=== PATIENT | male | born 1945 | race Caucasian/White ===

== ENCOUNTER → 2016-05-24 | Outpatient (CLI) | payer OTHER ==
[~2016-05-24] MED LIST: AMLO-110 PO; ASPEC81 PO; ATOR-26 PO; B-COTAB18 PO; CARV6.252 PO; CHOL100010 PO; COEN150C PO; FRS/40 PO; INSDGI SC; LISI40TA PO; NITR0.4S UT; NVLGI SQ; POTA-327 PO
[2016-05-24 12:29] LABS: ESTIMATED AVERAGE GLUCOSE 140 mg/dl; HA1C FLAG Normal (Normal)
[2016-05-24 12:46] LABS: BLOOD UREA NITROGEN 21 mg/dl (7-18); BUN/CREATININE RATIO 22.7 (10-20); CALCIUM 8.8 mg/dl (8.5-10.1); CARBON DIOXIDE 31 mmol/L (21-32); CHLORIDE 106 mmol/L (98-107); CREATININE 0.91 mg/dl (0.60-1.40); GLUCOSE 92 mg/dl (70-99); SODIUM 143 mmol/L (136-145)
== END | disposition home or self-care (01) ==
LOC: C.LAB 11:20
PROVIDERS: ATTEND Nurse Practitioner Adult Health
DX: E11.9 Type 2 diabetes mellitus without complications (principal); E83.51 Hypocalcemia

== ENCOUNTER → 2016-12-24 | Outpatient (CLI) | payer OTHER ==
[2016-12-24 09:57] LABS: ALT/SGPT 30 U/L (12-78); BLOOD UREA NITROGEN 15 mg/dl (7-18); BUN/CREATININE RATIO 16.4 (10-20); CALCIUM 8.6 mg/dl (8.5-10.1); CARBON DIOXIDE 30 mmol/L (21-32); CHLORIDE 108 mmol/L (98-107); CREATININE 0.94 mg/dl (0.60-1.40); GLUCOSE 124 mg/dl (70-99); SODIUM 142 mmol/L (136-145)
[2016-12-24 10:03] LABS: RATIO 5.7 mcg/mg (0-30.0)
[2016-12-24 10:04] LABS: ESTIMATED AVERAGE GLUCOSE 128 mg/dl; HA1C FLAG Normal (Normal)
[2016-12-24 10:08] LABS: PROSTATE SPECIFIC ANTIGEN 0.504 ng/ml (0.000-4.000)
== END | disposition home or self-care (01) ==
LOC: C.LAB 07:34
PROVIDERS: ATTEND Nurse Practitioner Adult Health
DX: E78.00 Pure hypercholesterolemia, unspecified (principal); I10 Essential (primary) hypertension; N40.1 Benign prostatic hyperplasia with lower urinary tract symptoms; I25.10 Atherosclerotic heart disease of native coronary artery without angina pectoris; E11.9 Type 2 diabetes mellitus without complications; F32.9 Major depressive disorder, single episode, unspecified; E66.3 Overweight

== ENCOUNTER → 2017-07-25 | Outpatient (CLI) | payer OTHER ==
[2017-07-25 10:28] LABS: HEMOGLOBIN A1C 5.9 % (4.5-5.6)
== END | disposition home or self-care (01) ==
LOC: C.LAB 07:40
PROVIDERS: ATTEND Family Medicine
DX: N40.2 Nodular prostate without lower urinary tract symptoms (principal); E11.9 Type 2 diabetes mellitus without complications

== ENCOUNTER 2022-03-27 06:11 | Observation (INO) ==
--- NOTE | 2022-01-23 15:46 | PAT Medication Instructions ---
Medication Instructions Date of Service January 23, 2022 Home Medications Medication Instructions Recorded nitroglycerin 0.4 mg sublingual 0.4 mg sublingual Q5M PRN chest 10/26/20 tablet pain #25 tabs amlodipine 5 mg tablet 5 mg PO QAM #90 tabs 04/25/21 bupropion HCl 150 mg tablet,12 hr 150 mg PO BID #180 ea 04/25/21 sustained-release carvedilol 12.5 mg tablet 12.5 mg PO BID #180 tabs 04/25/21 furosemide 20 mg tablet 20 mg PO QAM #90 tabs 04/25/21 lisinopril 40 mg tablet 40 mg PO QAM #90 tabs 04/25/21 potassium chloride 10 mEq 10 meq PO QAM #90 caps 04/25/21 capsule,extended release gabapentin 300 mg capsule 300 mg PO BID #180 caps 10/02/21 3-in-1 Commode #1 ea 12/07/21 Wheeled Walker #1 ea 12/07/21 cholecalciferol (vitamin D3) 50 mcg (2,000 unit) tablet 4,000 units PO QAM insulin syringe-needle U-100 1 mL 28 gauge x 1/2" (BD Insulin Syringe Micro- Fine) pen needle, diabetic 32 gauge x 5/32" (BD Alayna 2nd Gen Pen Needle) aspirin 81 mg tablet,delayed release (Adilene Low Dose Aspirin) 81 mg PO HS nitroglycerin 0.4 mg sublingual tablet 0.4 mg sublingual Q5M PRN coenzyme Q10 100 mg chewable tablet 300 mg PO QAM amlodipine 5 mg tablet 5 mg PO QAM bupropion HCl 150 mg tablet,12 hr sustained-release 150 mg PO BID carvedilol 12.5 mg tablet 12.5 mg PO BID furosemide 20 mg tablet 20 mg PO QAM lisinopril 40 mg tablet 40 mg PO QAM potassium chloride 10 mEq capsule,extended release 10 meq PO QAM insulin glargine 100 unit/mL subcutaneous solution (Lantus U-100 Insulin) 17 unit subcut HS blood sugar diagnostic (OneTouch Ultra Test strips) gabapentin 300 mg capsule 300 mg PO BID 3-in-1 Commode Wheeled Walker atorvastatin 80 mg tablet 80 mg PO HS finasteride 5 mg tablet 5 mg PO HS insulin aspart U-100 100 unit/mL (3 mL) subcutaneous pen (Novolog Flexpen U-100 Insulin aspart) 0 unit subcut UD multivitamin, stress formula (Stress Formula tablet) 1 tab PO HS tamsulosin 0.4 mg capsule 0.4 mg PO HS Continue as directed nitroglycerin 0.4 mg sublingual tablet 0.4 mg sublingual Q5M PRN(if needed) STOP taking 2 weeks before surgery coenzyme Q10 100 mg chewable tablet 300 mg PO QAM multivitamin, stress formula (Stress Formula tablet) 1 tab PO HS DO NOT take the morning of surgery cholecalciferol (vitamin D3) 50 mcg (2,000 unit) tablet 4,000 units PO QAM furosemide 20 mg tablet 20 mg PO QAM lisinopril 40 mg tablet 40 mg PO QAM potassium chloride 10 mEq capsule,extended release 10 meq PO QAM insulin aspart U-100 100 unit/mL (3 mL) subcutaneous pen (Novolog Flexpen U-100 Insulin aspart) 0 unit subcut UD Take morning of surgery With a small sip of water, OTHERWISE NOTHING TO EAT OR DRINK AFTER MIDNIGHT: amlodipine 5 mg tablet 5 mg PO QAM bupropion HCl 150 mg tablet,12 hr sustained-release 150 mg PO BID carvedilol 12.5 mg tablet 12.5 mg PO BID gabapentin 300 mg capsule 300 mg PO BID Take evening before surgery aspirin 81 mg tablet,delayed release (Adilene Low Dose Aspirin) 81 mg PO HS (unless directed otherwise by surgeon) bupropion HCl 150 mg tablet,12 hr sustained-release 150 mg PO BID carvedilol 12.5 mg tablet 12.5 mg PO BID insulin glargine 100 unit/mL subcutaneous solution (Lantus U-100 Insulin) 17 unit subcut HS gabapentin 300 mg capsule 300 mg PO BID atorvastatin 80 mg tablet 80 mg PO HS finasteride 5 mg tablet 5 mg PO HS tamsulosin 0.4 mg capsule 0.4 mg PO HS Other Notes If you have any questions please call us at [phone] or [phone] or [phone] or [phone]
--- NOTE | 2022-01-30 10:19 | Anesthesiology Consultation ---
Date of Service January 30, 2022 Assessment & Plan (1) Encounter for pre-operative examination: - Cardiology office visit (01/03/22): "Remote history of RCA stent. Stable exercise tolerance and stamina. No anginal or anginal equivalent symptoms.. Mildly reduced overall LV systolic function. Mild to moderate aortic stenosis. Findings on today's echo unchanged from echo year ago. No evidence of heart failure on exam.. Chronic peripheral edema. Likely secondary to primary venous insufficiency as well as adverse effect from amlodipine.. The patient is an acceptable cardiac risk for his planned orthopedic surgery in February. In light of his coronary artery stent would continue his aspirin therapy uninterrupted throughout the perioperative course.. Routine follow-up with me in 6 months." - Mild to moderate aortic stenosis: per 12/2021 echo. Discussed SAB vs. GA with patient. Ultimate anesthesia type to be determined AM DOS. - Outpatient joint assessment: Pt currently scheduled for inpatient pathway. If surgeon requests review for outpatient joint pathway, patient is not recommended candidate for outpatient joint program from anesthesia standpoint. - COVID screening: Per assessment on 01/30: No known COVID-19 positive contacts or current COVID-19 related symptoms. Travel screen- plan for travel from ~02/27- 03/08 to [place]. Additional travel planned ~03/10 to [place], [place]. Patient vaccinated. At surgeon discretion if preop Covid testing being done. - Check BSG AM DOS Chart Review Chart Review: Acceptable Risk for Surgery History Surgery Operation Date: 03/27/22 07:00 Proposed Procedures p Left Total Knee Arthroplasty - Nestor Benjamin MD Height/Weight Height: 6 ft 3 in Weight: 98.2 kg Allergies Allergy/AdvReac Type Severity Reaction Status Date / Time No Known Allergies Allergy Verified 01/23/22 13:04 Medications Home Medications Medication Instructions Recorded Confirmed Last Taken cholecalciferol (vitamin D3) 50 4,000 units PO QAM 12/10/18 01/23/22 05/18/19 mcg (2,000 unit) tablet insulin syringe-needle U-100 1 mL #10 ea 12/10/18 11/02/21 Unknown 28 gauge x 1/2" (BD Insulin Syringe Micro-Fine) pen needle, diabetic 32 gauge x #10 ea 12/10/18 11/02/21 Unknown 5/32" (BD Alayna 2nd Gen Pen Needle) aspirin 81 mg tablet,delayed 81 mg PO HS 04/30/19 01/23/22 05/18/19 release (Adilene Low Dose Aspirin) nitroglycerin 0.4 mg sublingual 0.4 mg sublingual Q5M PRN chest 10/26/20 01/23/22 Unknown tablet pain #25 tabs coenzyme Q10 100 mg chewable tablet 300 mg PO QAM 11/01/20 01/23/22 Unknown amlodipine 5 mg tablet 5 mg PO QAM #90 tabs 04/25/21 01/23/22 Unknown bupropion HCl 150 mg tablet,12 hr 150 mg PO BID #180 ea 04/25/21 01/23/22 Unknown sustained-release carvedilol 12.5 mg tablet 12.5 mg PO BID #180 tabs 04/25/21 01/23/22 Unknown furosemide 20 mg tablet 20 mg PO QAM #90 tabs 04/25/21 01/23/22 Unknown lisinopril 40 mg tablet 40 mg PO QAM #90 tabs 04/25/21 01/23/22 Unknown potassium chloride 10 mEq 10 meq PO QAM #90 caps 04/25/21 01/23/22 Unknown capsule,extended release insulin glargine 100 unit/mL 17 unit subcut HS 07/03/21 01/23/22 Unknown subcutaneous solution (Lantus U-100 Insulin) blood sugar diagnostic ([facility] 09/15/21 11/02/21 Unknown Ultra Test strips) gabapentin 300 mg capsule 300 mg PO BID #180 caps 10/02/21 01/23/22 Unknown 3-in-1 Commode #1 ea 12/07/21 12/07/21 Unknown Wheeled Walker #1 ea 12/07/21 12/07/21 Unknown atorvastatin 80 mg tablet 80 mg PO HS 01/23/22 01/23/22 Unknown finasteride 5 mg tablet 5 mg PO HS 01/23/22 01/23/22 Unknown insulin aspart U-100 100 unit/mL 0 unit subcut 01/23/22 01/23/22 Unknown (3 mL) subcutaneous pen (Novolog Flexpen U-100 Insulin aspart) multivitamin, stress formula 1 tab PO HS 01/23/22 01/23/22 Unknown (Stress Formula tablet) tamsulosin 0.4 mg capsule 0.4 mg PO HS 01/23/22 01/23/22 Unknown Past Medical History Medical History Aortic stenosis Mild to moderate aortic stenosis (DVI 0.55, HERBERTH 1.7cm2) per 12/2021 echo Benign prostatic hyperplasia with urinary obstruction and other lower urinary tract symptoms CAD (coronary artery disease) 1999 (stent to RCA) Depression Diabetes mellitus, type 2 IDDM Hearing deficit Hyperlipidemia Hypertension Myocardial Infarction [address] Rodriguez/VIANNEY Osteoarthritis Exercise / Class Metabolic Activity III < 4 Walking/Shop/Light housework (one FS (no CP, occasional SOB)) Past Family History Family History Brother Prostate cancer Cardiac disorder Hypertension Colonic polyp Brother Colonic polyp Myocardial infarction Father Myocardial infarction Other No family history of adverse response to anesthesia Denies family history of Ovarian cancer Breast cancer Colorectal cancer Past Surgical History Surgical History History of cardiac cath 1999 (stent to RCA) History of colonoscopy with polypectomy History of eye surgery 1963 right History of left knee surgery 1967 removed metal (d/t injury) from knee History of tonsillectomy History of tooth extraction History of varicose vein ligation right leg History of wisdom tooth extraction Hx of cataract extraction R/L Past Anesthesia History No Family Hx of Anesthesia Complications and Other (Awareness with previous eye procedures) History of PONV No Hx of PONV and No Hx of Motion Sickness Social History Smoking Status: Former smoker Do You Dip or Chew Tobacco: No Smoking End Date: Quit 2005 Hx Alcohol Use: Yes Alcohol type: beer, wine and hard liquor alcohol intake frequency: holidays/special occasions only Hx Substance Use: No substance use type: does not use Review of Systems Patient denies chest pain, shortness of breath, fever, chills, cough, wheezing, palpitations. Physical Exam Vital Signs VITALS BP 159/71 P 57 TEMP 97.9 SP02 98%RA RESP 16 PHYSICAL Full cervical extension range of motion. Full TMJ range of motion. TMD 3 finger breaths Mallampati Score 2 Dentition: several missing sides/molars Lungs: clear throughout to auscultation Cardiac: regular rate and rhythm, II/ systolic murmur Spine: normal Carotid arteries: negative bruit Extremities: no edema Lab Results Anesthesia Preop Results Results Anesthesia Widget: WBC 5.70 K/ul (4.8-10.8) 01/30/22 Hgb 13.3 g/dl (14.0-18.0) L 01/30/22 Hct 38.9 % (40.1-51.0) L 01/30/22 Plt 149 K/uL (130-400) 01/30/22 Na 141 mmol/L (136-145) 01/30/22 K 4.1 mmol/L (3.5-5.1) 01/30/22 Cl 106 mmol/L (98-107) 01/30/22 CO2 30 mmol/L (21-32) 01/30/22 BUN 22 mg/dl (6-23) 01/30/22 Creat 1.08 mg/dl (0.6-1.4) 01/30/22 Glucose Level 126 mg/dl (70-99(Fasting)) H 01/30/22 PT 11.7 Seconds (9.0-12.0) 01/30/22 PTT 27.5 Seconds (21.0-31.0) 01/30/22 INR 1.1 (0.9-1.1) 01/30/22 HA1c 6.3 % (4.5-5.6) H 01/30/22 Blood Type A Positive 01/30/22 Antibody Screen NEGATIVE 01/30/22 Testing Electrocardiogram Date: 01/30/22 SB with first degree AVB at 55bpm. LVH with QRS widening. NS TWA. Chest X-Ray Date: 01/30/22 FINDINGS: Cardiomediastinal and hilar silhouettes are within normal limits. Coronary arterial stent. No pneumothorax, pleural effusion, airspace consolidation or overt pulmonary edema. Bones of the chest appear grossly intact with degenerative changes of the shoulders and spine. IMPRESSION: No acute process. Echocardiogram Date: 01/03/22 EF 45-50%. Grade 1 diastolic dysfunction. Basalmid inferior, posterior, and inferior septal hypokinesis. Mild concentric LVH. Mild to moderate aortic stenosis (DVI 0.55, HERBERTH 1.7cm2). Mild AR/MR/KS. COVID-19 Risk Screen Screening Information COVID-19 Screen Date: 01/30/22 Exposure 21 Days Family/Household +COVID Last 21 Days: No Exposure 10 Days Any COVID Exposure Last 10 Days: No Symptoms Last 10 Days Experienced COVID Sx Last 10 Days: No + COVID 0-90 Days COVID + in Last 0-90 Days: No
--- NOTE | 2022-03-23 10:46 | History and Physical Report ---
CHIEF COMPLAINT: Bilateral knee pain and discomfort, left side greater than right. HISTORY OF PRESENT ILLNESS: The patient is a 76-year-old gentleman who now presents for surgical sherry atment of his left knee. He has got a long history of gradually progressive increased left knee pain and discomfort that has gotten worse over time. He has got global pain in his knee. He limps all t he time, but limps more as the day goes on. He has been through extensive conservative treatment in the past, which has become less successful. He has become less active as a result of his pain and li mited mobility. He would like to have his left knee fixed. Of note, the patient's daughter is a phy sical therapist and encouraged him to proceed with knee replacement. PAST MEDICAL HISTORY: 1. Hypertension. 2. Elevated cholesterol. 3. History of coronary artery disease, status post MN in 2000 without current symptoms. 4. Diabetes, on insulin. 5. Anxiety. 6. Low back pain/sciatica. PAST SURGICAL HISTORY: Includes, 1. Cardiac catheterization. 2. Cardiac stent placement. 3. Left knee open meniscectomy by Dr. Diaz in his 60s. 4. Tonsillectomy. 5. Oral surgery. 6. Varicose vein ligation. ALLERGIES: NONE. CURRENT MEDICATIONS: Include: 1. Amlodipine. 2. Aspirin. 3. Atorvastatin. 4. Bupropion. 5. Carvedilol. 6. Coenzyme Q. 7. Finasteride. 8. Furosemide. 9. Gabapentin. 10. Insulin. 11. Lisinopril. 12. Nitroglycerin. 13. Potassium chloride. 14. Tamsulosin. 15. Vitamin B complex. SOCIAL HISTORY: A 76-year-old male. He does not smoke. Rare alcohol intake. FAMILY HISTORY: Noncontributory. REVIEW OF SYSTEMS: Significant for diabetes. He has had a significant heart history but no current symptoms. No chest pain. No shortness of breath. No history of DVT or PE. PHYSICAL EXAMINATION: GENERAL: Shows a pleasant, healthy-appearing elderly gentleman. Looks to be in pretty good health. HEENT: Benign. NECK: Supple. No lymphadenopathy. LUNGS: Clear to auscultation. HEART: Regular rate and rhythm. ABDOMEN: Soft, nontender, and nondistended. EXTREMITIES: Grossly neurovascularly intact except as follows: Examination of the left knee reveals the patient ambulates independently. Walks with a bit of a limp. He has got a varus alignment to h is left knee with a varus thrust with weightbearing. I discussed fixed varus deformity. Small knee effusion. Range of motion 5-120. No instability. No pain with hip motion. X-RAYS: X-rays of the left knee are reviewed. It shows advanced left knee degenerative joint diseas e. He has got complete loss of medial joint space. He has got subchondral sclerosis. He has got le ss severe disease in his right knee. ASSESSMENT: A 76-year-old male with advanced left knee degenerative joint disease. He failed conser vative treatment. He now would like to proceed with knee replacement. PLAN: We are going to proceed with left knee replacement. The risks and benefits of this procedure were explained to the patient and include but not limited to DVT, PE, , infection, neurological injury, vascular injury, bleeding problem, pain, limited range of motion, stiffness, failure to relie ve the symptoms, incomplete relief of the symptoms, need for further surgery in the future, etc. The patient understands and desires to proceed. Informed consent was obtained. As far as discharge plans, he is planning to be discharged to home. His daughter is a physical thera pist from out of town and is planning to come and stay with him postoperatively. He does have a hist ory of a cardiac stent placement but stable and without symptoms. He has an echo, which shows mild-t o-moderate aortic stenosis. He knows to take his carvedilol the morning of surgery with a sip of sathish er and the holding the Lisinopril. Job ID: [id number]
[~2022-03-27 06:11] MED LIST changes: +ACETAMINOPHEN 500 MG TAB PO SCH; -AMLO-110 PO; -ASPEC81 PO; -ATOR-26 PO; -B-COTAB18 PO; +BUPIVACAINE LIPOSOME/PF 266 MG, BUPIVACAINE/EPINEPHRINE 50 ML, SODIUM CHLORIDE 0.9% 30 ... INFIL SCH; -CARV6.252 PO; -CHOL100010 PO; -COEN150C PO; +CeleBREX 200 MG CAP PO SCH; +FAMOTIDINE 20 MG TAB PO SCH; -FRS/40 PO; -INSDGI SC; -LISI40TA PO; +LR 15ML/HR IV SCH; +LR 60ML/HR IV SCH; +METOCLOPRAMIDE HCL 10 MG TABLET PO SCH; -NITR0.4S UT; -NVLGI SQ; -POTA-327 PO; +TRANEXAMIC ACID 1,000 MG **IV Intra-op IV SCH; +ceFAZolin 2000MG 2,000 MG/15 ML SYR IV SCH
[2022-03-27] MEDS ORDERED: ROPIVACAINE 0.5% 5 MG/ML 30 ML VIAL ONE (06:12)
[2022-03-27] MEDS ORDERED: BUPIVACAINE 0.5 % 5 MG/1 ML PF 10ML VIAL ONE (06:12)
[2022-03-27] MEDS ORDERED: EPINEPHrine INJ 1 MG/ML AMP ONE (06:13)
--- NOTE | 2022-03-27 06:58 | History & Physical Bridge Note ---
Date of Service March 27, 2022 History & Physical Bridge Note I have examined the patient, reviewed the History & Physical and in the interval since the performance of the History & Physical I have noted the following changes of clinical significance: no changes noted
[2022-03-27] MEDS ORDERED: fentaNYL citrate 100 MCG/2 ML VIAL ONE (08:07)
[2022-03-27] MEDS ORDERED: MIDAZOLAM HCL 1 MG/ML 2ML VIAL ONE (08:07)
[2022-03-27] MEDS ORDERED: ePHEDrine sulfate 50 MG/ML AMP IV PRN (08:59)
[2022-03-27] MEDS ORDERED: ONDANSETRON INJ 2 MG/ML 2 ML VIAL IV PRN ×2 (08:59→16:24)
[2022-03-27] MEDS ORDERED: ATROPINE SULFATE 0.1 MG/ML 10ML SYR IV PRN (08:59)
[2022-03-27] MEDS ORDERED: SODIUM CHLORIDE 0.9% PF 50 ML VIAL ONE (09:12)
[2022-03-27] MEDS ORDERED: BUPIVACAINE/EPINEPHRINE 0.25% 1:200,000 30 ML VIAL ONE (09:13)
[2022-03-27] MEDS ORDERED: BUPIVACAINE LIPOSOME 1.3% 266 MG/20 ML VIAL ONE (09:13)
[2022-03-27] MEDS ORDERED: ONDANSETRON INJ 2 MG/ML 2 ML VIAL ONE (10:13)
[2022-03-27] MEDS ORDERED: NOREPINEPHRINE BITARTRATE 1 MG/ML 4 ML VIAL IV ONE (10:13)
[2022-03-27] MEDS ORDERED: PROPOFOL IV EMULSION 10 MG/ML 20 ML VIAL IV ONE (10:13)
[2022-03-27] MEDS ORDERED: HYDROmorphone INJ 2 MG/ML SYR/VIAL ONE (10:18)
--- NOTE | 2022-03-27 11:47 | Operative Report ---
PG Post Operative Report Pre & Post Diagnosis Operation Date: 03/27/22 08:50 Pre-Op Diagnosis: Left Knee Degenerative Joint Disease Post-Op Diagnosis: Left Knee Degenerative Joint Disease I identified the patient and participated in the time-out.: Yes Procedure Operation Date: 03/27/22 08:50 Actual Procedures p Left Total Knee Arthroplasty(Left) - Nestor Benjamin MD Surgeon Nestor Benjamin MD Hose Suspender Cutter Tejas Patterson PA-C Estimated Blood Loss 50 Findings Consistent with Post-Op Diagnosis Operative findings were advanced LeftKnee tricompartment DJD. He had extensive grade 4 [id number]-[id number] disease and eburnation of the medial compartment. The less severe changes in the patellofemoral and lateral compartment. Fluids 1500 cc Specimens Anesthesia Type General Regional Complications none Disposition Accompanied Patient To Recovery: No Indications The patient is a 76-year-old gentleman with a long history of bilateral knee pain discomfort left side quite a bit worse than the right. Does have history of a left knee open meniscectomy done in the 70s. He has been through extensive conservative treatment over the years which became less successful. X-rays show advanced knee arthritis. He elected proceed with surgical treatment. Description of Procedure Operative implants consist of: 1 Biomet Vanguard size 70 left posterior stabilized femoral component. 2. Biomet size 83 tibial tray. 3. 12 mm posterior stabilized polyethylene insert. 4. 34 x 8 and half all Paller patella. The patient was taken the operating, identified, placed on the operating table supine position but all contact areas were properly padded. IV antibiotics tried by anesthesia team. A 6 General anesthetic was implemented. And abductor canal block had been provided in the holding area. A left thigh turn was then placed. Left lower extremities then prepped and draped in usual sterile fashion. Left leg was elevated exsanguinated with use of an Esmarch and the tourniquet was placed at 300 mmHg. An anterior approach of the left knee was then performed to longitudinal incision centered over the patella. Sharp dissection was carried through subcutaneous tissue down the extensor mechanism. A medial parapatellar arthrotomy incision was made. Some subperiosteal dissection was carried out medially. The fat pad was resected from Neath patella tendon. Lateral patellofemoral ligament was released. Patella subluxated laterally and the knee was flexed. The osteophytes were taken off distal femur. The ACL and PCL were then released from distal femur the tibia subluxated anteriorly. The external tibial alignment jig was then placed in the interface the tibia and adjusted 14 mm medially. Proximal tibial cut was made removed by millimeter bone from the most deficient aspect medial tibial plateau. Some osteophytes taken off medial and posterior medially. The tibia sized to a size 83. Attention drawn the femur. The distal femur was entered the sharp drill bit intramedullary canal was suction. A left 6 degree valgus cutting guide was placed. Distal femoral cutting block was pinned in place. Distal femoral cut was made to take an additional 3 mm bone off distal femur. The femur was then sized to a size 70. The AP cutting block was pinned parallel to the epicondylar axis which was 4 d egrees of external rotation. The anterior cut, anterior chamfer, posterior cut, posterior chamfer cuts were made. The box cutting guide was placed in a just slight lateral and the box cut was made. The knee was flexed. The remnants of the medial and lateral menisci were excised. The osteophyte taken off the posterior aspect of femur. A trial femoral component was placed for the tibial tray was pinned in maximum external rotation and the drill and stem punch used to create defect in proximal tibia for the tibial tray. Knee was then trialed and the 12 mm insert fit most appropriately. Attention drawn the patella. The patella was cleaned of all soft tissue. Patella thickness measured 22 mm in thickness was cut down to 14. Was sized to a size 34 patella. The lug holes were drilled for 34 patella. The lateral osteophyte was removed. Patella button was placed. Knee was taken through range of motion patella tracked nicely with no thumbs test. Attention drawn to placing permanent components. Nupathe all trial components were removed. Bone plug was placed in the distal femur limit blood loss. Double batch Palacos G cement was mixed. Biomet Vanguard size 70 left posterior stabilized femoral component, size 83 tibial tray, a 12 mm posterior stabilized polyethylene insert, and a 34 x 8-1/2 all Paller patella then cemented in place. Knee was brought out in full extension until cement hardened. Final cement check was then performed. The pericapsular tissues were injected with a total of 100 cc of combination of 20 cc of Exparel, 30 cc normal saline, 50 cc of quarter percent Marcaine with epinephrine. Patient did receive 1 g tranexamic acid. The tourniquet was let down for final turn time of 67 minutes. Hemostasis assured use electrocautery. Extensor mechanism closed with combination 1 PDS suture #1 Vicryl suture in [id number] fashion. Extensor mechanism checked found to be intact the subcutaneous tissue then closed with 2 Dexon suture buried interrupted fashion skin was closed skin oralia. Leg was then cleaned and dried and a sterile dressing was Xeroform, 4 x 4's, sterile cast padding, Calixto bandage were applied. Patient then transferred to the recovery room in stable condition. Patient tolerated procedure well and there were no complications. Tejas Patterson, my physician assistant boys track coach, was present for the entire procedure. His assistance was essential and required for appropriate patient positioning, prepping and draping, surgical exposure, performing the technical details of the operation, placement the implants, closure of the wound, and placement of the sterile bandage. I attest to the content of the Intraoperative Record and any orders documented therein. Any exceptions are noted below.
[2022-03-27] MEDS: fentaNYL citrate 100 MCG/2 ML VIAL IV PRN ×4 (11:50→12:05)
[2022-03-27] MEDS: HYDROmorphone INJ 1 MG/ML SYRINGE IV PRN ×7 (12:07→16:51)
--- NOTE | 2022-03-27 12:28 | XRay Report ---
TWO VIEWS LEFT KNEE CLINICAL HISTORY: Postoperative examination. FINDINGS: AP and crosstable lateral portable views of the left knee are obtained. A left knee arthrop lasty is in near anatomic alignment. There has been undersurface remodeling of the patella. No acute fracture is seen. There are expected postoperative changes around the knee including skin clips, soft tissue edema, and subcutaneous gas. IMPRESSION: Expected postoperative changes status post left knee arthroplasty. No acute fracture is s een. ACT 112: Negative or not required by law. Electronically signed by: Lawrence Diaz M.D. 03/27/2022 12:27 PM
[2022-03-27] MEDS ORDERED: KETOROLAC 30 MG/ML VIAL ONE (13:08)
--- NOTE | 2022-03-27 14:06 | Anesthesiology Progress Note ---
Date of Service March 27, 2022 Anesthesia Post Procedure Vital Signs Vital Signs: Temp Pulse Resp BP Pulse Ox O2 Del Method O2 Flow Rate 03/27/22 13:20 61 16 133/80 99 Nasal Cannula 2 03/27/22 12:50 59 L 16 126/66 99 Nasal Cannula 2 03/27/22 12:35 61 16 119/68 99 Nasal Cannula 2 03/27/22 12:25 36.9 C 57 L 16 130/72 98 Nasal Cannula 2 03/27/22 12:15 57 L 16 121/78 98 Nasal Cannula 2 03/27/22 12:05 69 18 135/77 98 Nasal Cannula 2 03/27/22 11:55 68 20 144/71 H 98 Nasal Cannula 2 03/27/22 11:45 37.2 C 67 20 144/75 H 97 Nasal Cannula 2 03/27/22 07:09 36.9 C 65 20 146/77 H 95 Room Air Pain Intensity Left Knee: Pain Intensity: 2 Transfer of Care Handoff Completed per policy Notes Mental Status: alert / awake / arousable and participated in evaluation Patient Amnestic to Procedure: Yes Nausea / Vomiting: adequately controlled Pain: adequately controlled Airway Patency, RR, SpO2: stable & adequate BP & HR: stable & adequate Hydration State: stable & adequate Anesthetic Complications: no major complications apparent and Pt Satisfied with anesthetic care
[2022-03-27] MEDS ORDERED: PHARMACY GLYCEMIC MGMT CONSULT PRN (16:24)
[2022-03-27] MEDS ORDERED: MAGNESIUM HYDROXIDE SUSP 30 ML UDC PO PRN (16:24)
[2022-03-27] MEDS ORDERED: HYDROmorphone INJ 0.5 MG/0.5 ML SYR IV PRN (16:24)
[2022-03-27] MEDS ORDERED: NALOXONE HCL 0.4 MG/1 ML VIAL/CARP IV PRN (16:24)
[2022-03-27] MEDS ORDERED: ALUMINUM/MAGNESIUM SUSP 30 ML UDC PO PRN (16:24)
[2022-03-27] MEDS ORDERED: NITROGLYCERIN SL 0.4 MG/TAB TAB SL PRN (16:24)
[2022-03-27] MEDS ORDERED: bisacodyL 10 MG SUPP PR PRN (16:24)
[2022-03-27] MEDS ORDERED: METOCLOPRAMIDE HCL INJ 5 MG/ML 2 ML VIAL IV PRN (16:24)
[2022-03-27] MEDS ORDERED: LANTUS PER UNIT CHARGE SQ SCH ×2 (17:15→21:00)
[2022-03-27] MEDS ORDERED: TRANEXAMIC ACID / 0.7% NACL 1,000 MG/100 ML BAG IV SCH (17:45)
[2022-03-27] MEDS: SODIUM CHLORIDE 0.9% 1000ML 1,000 ML IV SCH (17:56)
[2022-03-27] MEDS: ACETAMINOPHEN 500 MG TAB PO SCH ×2 (17:57→22:55)
[2022-03-27] MEDS: KETOROLAC TROMETHAMINE 15 MG/ML VIAL IV SCH ×2 (17:57→22:56)
[2022-03-27] MEDS: ASCORBIC ACID 500 MG TAB PO SCH (18:56)
[2022-03-27] MEDS: ceFAZolin 2000MG 2,000 MG/15 ML SYR IV SCH (19:08)
[2022-03-27] MEDS: GABAPENTIN 300 MG CAP PO SCH (20:51)
[2022-03-27] MEDS: ASPIRIN 81 MG ECTAB PO SCH (20:52)
[2022-03-27] MEDS: DOCUSATE SODIUM 100 MG CAP PO SCH (20:52)
[2022-03-27] MEDS: carvediloL 12.5 MG TAB PO SCH (20:53)
[2022-03-27] MEDS: buPROPion SR 150 MG TABCR PO SCH (20:53)
[2022-03-27] MEDS ORDERED: FINASTERIDE 5 MG TAB PO SCH (21:00)
[2022-03-27] MEDS ORDERED: SENNA 8.6 MG TAB PO SCH (21:00)
[2022-03-27] MEDS ORDERED: TAMSULOSIN HCL 0.4 MG CAP PO SCH (21:00)
[2022-03-27] MEDS ORDERED: ATORVASTATIN 40 MG TAB PO SCH (21:00)
[2022-03-27] MEDS: INSULIN ASPART PER UNIT SC SCH (21:00)
[2022-03-28] MEDS: oxyCODONE HCL IR 5 MG TAB (IMMEDIATE RELEASE) PO PRN ×2 (01:00→14:08)
[2022-03-28] MEDS: INSULIN ASPART PER UNIT SC SCH ×4 (01:01→12:44)
[2022-03-28] MEDS: ceFAZolin 2000MG 2,000 MG/15 ML SYR IV SCH (01:24)
[2022-03-28] MEDS: KETOROLAC TROMETHAMINE 15 MG/ML VIAL IV SCH ×2 (03:58→10:47)
[2022-03-28] MEDS: SODIUM CHLORIDE 0.9% 1000ML 1,000 ML IV SCH (04:04)
[2022-03-28] MEDS: ACETAMINOPHEN 500 MG TAB PO SCH (05:46)
[2022-03-28 08:01] LABS: Hematocrit (blood only) 30.7 % (40.1-51.0); Hemoglobin 10.4 g/dl (14.0-18.0); Mean Corpuscular Hemoglobin 31.3 pg (25.0-34.0); Mean Corpuscular Hgb Conc 33.9 g/dL (32.0-36.0); Mean Corpuscular Volume 92.5 fL (80.0-100.0); Mean Platelet Volume 9.4 fL (9.4-12.4); Platelet Count 113 K/uL (130-400); RDW Coefficient of Variation 13.8 % (11.5-14.5); RDW Standard Deviation 46.5 fL (36.4-46.3); Red Blood Count 3.32 M/uL (4.63-6.08); White Blood Count 5.62 K/ul (4.8-10.8)
[2022-03-28 08:22] LABS: BUN Creatinine Ratio 22.9 (10-20); Calcium 7.8 mg/dl (8.5-10.1); Creatinine Clr Calc Pharmacy 64.6 ml/min; Est GFR (African American) 69.5 ml/min
[2022-03-28] MEDS: ASPIRIN 81 MG ECTAB PO SCH (08:32)
[2022-03-28] MEDS: buPROPion SR 150 MG TABCR PO SCH (08:32)
[2022-03-28] MEDS: ASCORBIC ACID 500 MG TAB PO SCH (08:32)
[2022-03-28] MEDS: carvediloL 12.5 MG TAB PO SCH (08:33)
[2022-03-28] MEDS: GABAPENTIN 300 MG CAP PO SCH (08:33)
[2022-03-28] MEDS: DOCUSATE SODIUM 100 MG CAP PO SCH (08:33)
[2022-03-28] MEDS ORDERED: CHOLECALCIFEROL 1,000 UNITS 25 MCG TAB PO SCH (09:00)
[2022-03-28] MEDS ORDERED: FUROSEMIDE 20 MG TAB PO SCH (09:00)
[2022-03-28] MEDS ORDERED: COENZYME Q10 100 MG PO SCH (09:00)
[2022-03-28] MEDS ORDERED: amLODIPine BESYLATE 5 MG TAB PO SCH (09:00)
[2022-03-28] MEDS ORDERED: DOCUSATE SODIUM/SENNA 50/8.6MG TAB PO SCH (09:00)
[2022-03-28] MEDS ORDERED: MULTIVITAMIN TAB PO SCH (09:00)
[2022-03-28] MEDS ORDERED: lisinopril 40 MG TAB PO SCH (09:00)
[2022-03-28] MEDS ORDERED: POTASSIUM CHLORIDE 10 MEQ TABCR PO SCH (09:00)
[2022-03-28] MEDS ORDERED: VITAMIN B COMPLEX TAB PO SCH (09:00)
--- NOTE | 2022-03-28 09:14 | Pharmacy Report ---
Pharmacy Glycemic Short Note 2 - Date of Service March 28, 2022 - Glycemic Short BSG Results (Last 24 hours): 03/27/22 03/27/22 03/27/22 11:51 16:58 20:51 Glucose POC Glucose 156 H 153 H 164 H 03/28/22 03/28/22 03/28/22 00:29 03:49 07:41 Glucose 117 H POC Glucose 189 H 177 H 03/28/22 08:14 Glucose POC Glucose 110 H OUTPATIENT ANTIDIABETIC REGIMEN: * Lantus 17 units HS * Novolog ACHS HbA1C: 6.3% (01/30/22) ASSESSMENT: * Patient is a 76 YOM now POD#1 left total knee arthroplasty. History of DM2. Pharmacy consulted to assist with glycemic management while inpatient. * Preop BSG 151mg/dL, postop BSGs 153, 164, 189, 177mg/dL. Fasting BSG this AM, 110mg/dL. Tolerating diet. * Plan to continue home Lantus dose, 17units HS. Novolog ACHS moderate stress. PLAN FOR INPATIENT GLYCEMIC CONTROL: * Hold outpatient oral diabetes medications * Basal insulin * Lantus 17 units SQ HS * Bolus insulin * NovoLog per scale ACHS or Q6hrs while NPO * Goal Range: Low 110 mg/dL - High 140 mg/dL * Correction Factor: 25 mg/dL/unit * Nutritional / Prandial insulin per carb ratio of 1 unit per 7 grams CHO consumed
--- NOTE | 2022-03-28 13:42 | Progress Notes ---
DATE OF SERVICE: 03/28/2022 SUBJECTIVE: A 76-year-old gentleman, postoperative day 1 from a left knee replacement. He is doing pretty well. His most severe pain is rated at 4. No chest pain or shortness of breath. Not feeling dizzy or lightheaded. OBJECTIVE: VITAL SIGNS: Temperature 36.5. Vital signs are stable. GENERAL: Shows a pleasant, elderly male. He is sitting up in bed and talking to his and looks quite comfortable. LUNGS: Clear to auscultation. HEART: Regular rate and rhythm. ABDOMEN: Soft, nontender, nondistended. EXTREMITIES: Grossly neurovascularly intact except as follows: Examination of the left leg reveals the dressing to be clean, dry and intact. Leg is well aligned. He can dorsiflex and plantarflex his foot appropriately. He can do a pretty good straight leg raise. LABORATORY DATA: Hemoglobin is 10.4. Hematocrit 30.7. Electrolytes are stable. ASSESSMENT: A 76-year-old gentleman with multiple medical comorbidities. He is postop day 1 from le ft knee replacement, doing quite well. Pain is controlled. He is neurologically intact. PLAN: 1. DVT prophylaxis includes thigh-high TEDs, SCDs, and aspirin twice a day. 2. PT/OT. He can fully weightbear as tolerated on this left leg. Left total knee protocol. 3. Pain control, doing okay with current pain regimen. 4. Medical management. Medical problems seem to be although well controlled currently. 5. Disposition. Plan to discharge to home with some home health later today if he does okay in [employer]. Job ID: [id number]
== END 2022-03-28 15:05 | disposition home health service (06) ==
LOC: PACUINP 06:11 → ASU 06:11 → 3E 17:24